=== PATIENT | female | born 1980 | race Caucasian/White ===

== ENCOUNTER 2021-03-16 22:30 | Emergency (ER) | payer MEDICAID ==
[~2021-03-16] VITALS: Ht 152.4 cm; Wt 62.3 kg
--- NOTE | 2021-03-16 23:31 | NUR ---
TASK RN: PT AMBULATED STEADILY TO ROOM WITH RN. PT REPORTS EPIGASTRIC ABD PAIN X TODAY, +NAUSEA. DENIES VOMITING/DYSURIA. +, UNKNOWN LMP "DECEMBER". . UA COLLECTED AND SENT TO LAB
[2021-03-16 23:44] LABS: MICROSCOPIC NOT IND
[2021-03-17 00:10] LABS: BASOPHILS % (AUTO) 1 % (0-1); EOSINOPHILS % (AUTO) 1 % (1-7); LYMPHOCYTES % (AUTO) 20 % (22-44); MEAN CORPUSCULAR HEMOGLOBIN 30.2 pg (27.0-34.8); MEAN CORPUSCULAR HGB CONC 34.3 g/dL (32.4-35.8); MEAN PLATELET VOLUME 8.6 fL (7.4-10.4); MONOCYTES % (AUTO) 9 % (2-9); NEUTROPHILS % (AUTO) 69 % (42-75); PLATELET COUNT 272 x10^3/uL (130-400); RED BLOOD COUNT 3.66 x10^6/uL (3.82-5.3); RED CELL DISTRIBUTION WIDTH 14.9 % (9.6-15.2)
[2021-03-17 00:11] LABS: MD NO
[2021-03-17 01:09] VITALS: BP 106/68
--- NOTE | 2021-03-17 02:11 | NUR ---
TASK RN: THIS RN GAVE PT D/C INSTRUCTION, PT VERBALIZED UNDERSTANDING. UNHOOKED PT FROM MONITORS.
== END 2021-03-17 02:20 | disposition home or self-care (01) ==
LOC: ED 03-17 02:16
DX: O26.891 Other specified pregnancy related conditions, first trimester (principal); R10.13 Epigastric pain; Z87.891 Personal history of nicotine dependence; Z3A.08 8 weeks gestation of pregnancy
CPT/HCPCS: 36415; 76801; 80053; 81003; 83690; 84702; 85025; 99284

== ENCOUNTER 2021-04-20 11:25 | Emergency (ER) | payer MEDICAID ==
[~2021-04-20] VITALS: Ht 152.4 cm; Wt 60.0 kg
[2021-04-20 12:10] LABS: BASOPHILS % (AUTO) 1 % (0-1); EOSINOPHILS % (AUTO) 3 % (1-7); LYMPHOCYTES % (AUTO) 27 % (22-44); MEAN CORPUSCULAR HEMOGLOBIN 30.3 pg (27.0-34.8); MEAN PLATELET VOLUME 8.4 fL (7.4-10.4); MONOCYTES % (AUTO) 9 % (2-9); NEUTROPHILS % (AUTO) 61 % (42-75); PLATELET COUNT 309 x10^3/uL (130-400); RED BLOOD COUNT 3.88 x10^6/uL (3.82-5.3)
--- NOTE | 2021-04-20 12:16 | NUR ---
CHRIS FOR UA, SPECIMEN WALKED TO LAB. US AT BS.
[2021-04-20 12:17] LABS: ALANINE AMINOTRANSFERASE 19 U/L (12-78); ALBUMIN 3.6 g/dL (3.4-5.0); ANION GAP 5 mmol/L (5-15); CALCIUM 9.1 mg/dL (8.5-10.1); CHLORIDE 111 mmol/L (98-107)
[2021-04-20 12:20] LABS: ALKALINE PHOSPHATASE 62 U/L (45-117); BILIRUBIN,TOTAL 0.6 mg/dL (0.2-1.0); TOTAL PROTEIN 7.4 g/dL (6.4-8.2)
[2021-04-20 12:23] LABS: MICROSCOPIC NOT IND
--- NOTE | 2021-04-20 13:10 | NUR ---
ADD ON ORDER FOR QUANT LAB.
--- NOTE | 2021-04-20 14:54 | NUR ---
TASK RN. PT D/C'D PER ORDERS. PT VERBALIZED UNDERSTANDING OF D/C ORDERS. PT HAS STEADY GAIT UPON D/C.
[2021-04-20 14:55] VITALS: BP 127/80
== END 2021-04-20 14:57 | disposition home or self-care (01) ==
LOC: ED 12:18
DX: O03.9 Complete or unspecified spontaneous abortion without complication (principal)
CPT/HCPCS: 36415; 76830; 80053; 81003; 84702; 85025; 86850; 86900; 99284